=== PATIENT | male | born 1990 | race African-American/Black ===

== ENCOUNTER 2020-06-17 11:15 | Emergency (ER) | payer MEDICAID ==
[~2020-06-17] VITALS: Ht 175.3 cm; Wt 71.0 kg
[2020-06-17] MEDS ORDERED: LEVETIRACETAM 500MG PREMIX 100 ML IV ONE (11:45)
[2020-06-17 11:56] LABS: BASOPHILS % 0.7 % (0.0-2.0); EOSINOPHILS % 1.1 % (0.0-5.0); HEMOGLOBIN. 13.1 g/dL (14.0-18.0); LYMPHOCYTES % 32.7 % (20.0-50.0); MEAN CORPUSCULAR HEMOGLOBIN 22.9 pg (28.0-32.0); MEAN CORPUSCULAR VOLUME 71.6 fL (80.0-94.0); MEAN PLATELET VOLUME 8.8 fl (7.4-10.4); MONOCYTES % 5.8 % (2.0-8.0); NEUTROPHILS % 59.7 % (40.0-76.0); PLATELET 154 x1000/uL (130-400); RED BLOOD CELL COUNT 5.73 mill/uL (4.7-6.1); RED CELL DISTRIBUTION WIDTH 16.1 % (11.6-14.6)
[2020-06-17 12:02] LABS: CHLORIDE 106 mEq/L (98-107)
[2020-06-17 12:07] LABS: ETHANOL BLOOD < 10 mg/dL
[2020-06-17] MEDS ORDERED: SODIUM CHLORIDE 0.9% 1,000 ML IV ONE (12:45)
[2020-06-17 14:24] VITALS: BP 125/65
== END 2020-06-17 14:26 | disposition home or self-care (01) ==
LOC: EDBD 11:15 → ER 11:15
DX: G40.909 Epilepsy, unspecified, not intractable, without status epilepticus (principal); Z93.3 Colostomy status
CPT/HCPCS: 36415; 80053; 80320; 85025; 93005; 96361; 96365; 99284; J1953; J7030; G0480